=== PATIENT | male | born 1945 | race Caucasian/White ===

== ENCOUNTER 2019-01-30 09:56 | Day surgery (SDC) | payer BC ==
[~2019-01-30] VITALS: Ht 180.3 cm; Wt 82.5 kg
[~2019-01-30 09:56] MED LIST: ASPI81EC PO; CLOP75 PO; DIPH12.5EL; OMEP20ER PO; SIMV40 PO; [UNRECOGNIZED DRUG - REMARK]
[2019-01-30] MEDS ORDERED: SINEMET 25-1001 EACH PO (10:48)
== END 2019-01-30 12:34 | disposition home or self-care (01) ==
LOC: ORSCSDS 09:56
PROVIDERS: Internal Medicine Gastroenterology
PROC: 0DBL8ZX Excision of Transverse Colon, Via Natural or Artificial Opening Endoscopic, Diagnostic (ICD-10-PCS; principal; 2019-01-30 11:15)
PROC: 0DBP8ZX Excision of Rectum, Via Natural or Artificial Opening Endoscopic, Diagnostic (ICD-10-PCS; principal; 2019-01-30 11:15)
DX: Z12.11 Encounter for screening for malignant neoplasm of colon (principal); D12.3 Benign neoplasm of transverse colon; D12.8 Benign neoplasm of rectum; K63.89 Other specified diseases of intestine; K64.8 Other hemorrhoids; K57.30 Diverticulosis of large intestine without perforation or abscess without bleeding; Z86.010 Personal history of colon polyps; G20 Parkinson's disease; E78.5 Hyperlipidemia, unspecified; F32.9 Major depressive disorder, single episode, unspecified; J45.909 Unspecified asthma, uncomplicated; Z86.73 Personal history of transient ischemic attack (TIA), and cerebral infarction without residual deficits; Z87.891 Personal history of nicotine dependence; Z79.82 Long term (current) use of aspirin; Z79.899 Other long term (current) drug therapy
CPT/HCPCS: 88305; J2704; J7120

== ENCOUNTER → 2019-11-09 | Outpatient (CLI) | payer BC ==
[~2019-11-09] MED LIST changes: +SINEMET 25-1001 EACH PO
== END | disposition home or self-care (01) ==
LOC: PLD 08:53 → LAB SHORT 08:53
DX: D48.5 Neoplasm of uncertain behavior of skin (principal)
CPT/HCPCS: 88304

== ENCOUNTER → 2020-07-06 | Outpatient (CLI) | payer BC ==
[2020-07-07 14:40] LABS: Stool Occult Bld Immuno 1 Negative (NEGATIVE); Stool Occult Bld Immuno 2 Negative (NEGATIVE); Stool Occult Bld Immuno 3 Negative (NEGATIVE)
== END | disposition home or self-care (01) ==
LOC: LAB EV 09:00 → LAB SHORT 09:00
PROVIDERS: Physician Assistant
DX: D64.9 Anemia, unspecified (principal)
CPT/HCPCS: 82274

== ENCOUNTER → 2022-04-17 | Outpatient (CLI) | payer BC | END | disposition home or self-care (01) | LOC: PLD 11:04 → LAB SHORT 11:04 | DX: L95.9 Vasculitis limited to the skin, unspecified (principal) | CPT/HCPCS: 88305; 88312 ==